=== PATIENT | male | born 1975 | race Caucasian/White ===

== ENCOUNTER 2017-01-14 20:11 | Emergency (ER) | payer SELFPAY ==
[2017-01-14] MEDS ORDERED: OPANA5 M1 PO (20:27)
[2017-01-14] MEDS ORDERED: SYNTHROID0.2 MG/TAB PO (20:27)
[2017-01-14] MEDS ORDERED: ZOVIRAX800 M1 PO (21:06)
[2017-01-14] MEDS ORDERED: PERCOCET 7.5-31 EAC1 PO (21:06)
[2017-01-15] MEDS ORDERED: PREDNISONE20 M1 PO (19:54)
[2017-04-07] MEDS ORDERED: NORCO 5-325 TA1 EACH PO (14:27)
[2017-04-07] MEDS ORDERED: ZOVIRAX800 M1 PO (14:27)
[2017-04-07] MEDS ORDERED: DELTASONE20 MG PO (14:27)
[2017-04-07] MEDS ORDERED: HYDROCODONE-IB1 EAC3 PO (14:40)
== END 2017-01-14 21:46 ==
LOC: EDMED 20:11
DX: B02.9 Zoster without complications (principal); F17.210 Nicotine dependence, cigarettes, uncomplicated
CPT/HCPCS: J1170

== ENCOUNTER 2017-01-15 18:24 | Emergency (ER) | payer SELFPAY ==
[~2017-01-15 18:24] MED LIST: OPANA5 M1 PO; PERCOCET 7.5-31 EAC1 PO; SYNTHROID0.2 MG/TAB PO; ZOVIRAX800 M1 PO
[2017-01-15] MEDS ORDERED: PREDNISONE20 M1 PO (19:54)
[2017-04-07] MEDS ORDERED: ZOVIRAX800 M1 PO (14:27)
[2017-04-07] MEDS ORDERED: DELTASONE20 MG PO (14:27)
[2017-04-07] MEDS ORDERED: NORCO 5-325 TA1 EACH PO (14:27)
[2017-04-07] MEDS ORDERED: HYDROCODONE-IB1 EAC3 PO (14:40)
== END 2017-01-15 20:12 ==
LOC: EDMED 18:24
DX: B02.9 Zoster without complications (principal); F17.210 Nicotine dependence, cigarettes, uncomplicated; Z98.890 Other specified postprocedural states